=== PATIENT | male | born 2000 | race Caucasian/White ===

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

== ENCOUNTER 2022-04-22 07:49 | Emergency (ER) | payer MEDICAID ==
[~2022-04-22] VITALS: Ht 170.2 cm; Wt 98.4 kg
[2022-04-22 07:58] VITALS: BP 126/95
--- NOTE | 2022-04-22 08:05 | NUR ---
PT AMBULATED TO BED 3
--- NOTE | 2022-04-22 08:17 | NUR ---
21 Y/O MALE C/O OF SOB, SATTING AT 96% RA, DENIES ANY MEDICATION FOR ASTHMA TODAY. PT STATED TO ME THAT HE FEELS LIKE THIS IS MORE LIKE A PANIC ATTACK THEN HIS ASTHMA. DENIES ANY PAIN AT THIS TIME. NO CHEST PAIN OR N/V/D. PT IS A&OX4, SKIN INTACT, NO SIGNS OF RESPIRATORY DISTRESS, VITALS WNL, AND STEADY GAIT. PT PUT ON PULSE OX AND SITTING IN CHAIR. MED:LUVOX NKA PMH: ASTHMA, ANXIETY, OCD, SLEEP APNEA
[2022-04-22] MEDS ORDERED: ATA25 PO (08:40)
[2022-04-22 08:47] VITALS: BP 126/95
== END 2022-04-22 08:48 | disposition home or self-care (01) ==
LOC: MED 07:49
DX: R06.02 Shortness of breath (principal); F41.9 Anxiety disorder, unspecified; J45.909 Unspecified asthma, uncomplicated
CPT/HCPCS: 99283